=== PATIENT | male | born 1990 | race Caucasian/White ===

== ENCOUNTER 2020-06-17 23:09 | Emergency (ER) | payer MEDICAID ==
[~2020-06-17] VITALS: Ht 188 cm; Wt 101.7 kg
--- NOTE | 2020-06-17 23:33 | NUR ---
pt is calm and states he is feeling down since getting off Fentanyl 20 days ago. Denies SI, no other complaints at this time.
[2020-06-17] MEDS ORDERED: LORazepam 1 MG tablet PO ONE (23:45)
[2020-06-18 00:04] VITALS: BP 119/67
[2020-06-18] MEDS ORDERED: DIVA500T2 PO (12:42)
== END 2020-06-18 00:06 | disposition home or self-care (01) ==
LOC: ER 23:09
DX: F41.9 Anxiety disorder, unspecified (principal); Z79.899 Other long term (current) drug therapy
CPT/HCPCS: 99283

== ENCOUNTER 2020-06-18 09:26 | Emergency (ER) | payer MEDICAID ==
[~2020-06-18] VITALS: Ht 188 cm; Wt 100.9 kg
[2020-06-18 09:36] VITALS: BP 118/82
[2020-06-18] MEDS ORDERED: LORazepam 1 MG tablet PO ONE (11:25)
[2020-06-18] MEDS ORDERED: ondansetron 4mg rapidly disintigrating tab PO ONE (11:50)
[2020-06-18] MEDS ORDERED: divalproex 250mg tablet, delayed-release PO ONE (12:35)
[2020-06-18] MEDS ORDERED: naltrexone 50mg tablet PO SCH (12:35)
[2020-06-18] MEDS ORDERED: DIVA500T2 PO (12:42)
== END 2020-06-18 12:59 | disposition home or self-care (01) ==
LOC: ER 09:26
DX: F41.9 Anxiety disorder, unspecified (principal); R11.0 Nausea; R06.02 Shortness of breath; F32.9 Major depressive disorder, single episode, unspecified; R51.9 Headache, unspecified; Z79.899 Other long term (current) drug therapy
CPT/HCPCS: 99284

== ENCOUNTER 2020-06-22 09:41 | Emergency (ER) | payer MEDICAID ==
[~2020-06-22] VITALS: Ht 188 cm; Wt 104.5 kg
[~2020-06-22 09:41] MED LIST: DIVA500T2 PO
[2020-06-22] MEDS ORDERED: diphenhydrAMINE 50 mg/ml inj IV ONE (09:45)
[2020-06-22] MEDS ORDERED: normal saline 1000ML IV soln IVB ONE (09:45)
[2020-06-22] MEDS ORDERED: proCHLORperazine 10 MG/2 ml inj IV ONE (09:45)
[2020-06-22 10:29] LABS: BASOPHILS % (AUTO) 0.6 % (0-1); EOSINOPHILS # (AUTO) 0.1 X10'3 (0-0.9); EOSINOPHILS % (AUTO) 1.4 % (0-6); HEMATOCRIT 43.4 % (42.0-52.0); HEMOGLOBIN 14.8 g/dl (14.0-17.9); LYMPHOCYTES # (AUTO) 1.9 X10'3 (1.1-4.8); LYMPHOCYTES % (AUTO) 32.2 % (21-51); MEAN CORPUSCULAR HEMOGLOBIN 30.7 PG (27.0-31.0); MEAN CORPUSCULAR VOLUME 90.2 FL (78-98); MEAN PLATELET VOLUME 7.3 FL (7.4-10.4); MONOCYTES # (AUTO) 0.4 X10'3 (0-0.9); MONOCYTES % (AUTO) 7.6 % (2-12); NEUTROPHILS # (AUTO) 3.4 X10'3 (1.8-7.7); NEUTROPHILS % (AUTO) 58.2 % (42-75); PLATELET COUNT 255 X10'3 (140-440); RED BLOOD COUNT 4.81 X10'6 (4.70-6.10); RED CELL DISTRIBUTION WIDTH 14.8 % (11.5-14.5); WHITE BLOOD COUNT 5.9 X10'3 (4.5-11.0)
[2020-06-22 10:45] LABS: ALANINE AMINOTRANSFERASE 18 U/L (12-78); ALBUMIN/GLOBULIN RATIO 1.1 (1.1-1.5); ALKALINE PHOSPHATASE 114 IU/L (46-116); ANION GAP 11 (8-16); ASPARTATE AMINO TRANSFERASE 17 U/L (10-37); BILIRUBIN,TOTAL 0.8 MG/DL (0.1-1.0); BLOOD UREA NITROGEN 7 MG/DL (7-18); BUN/CREATININE RATIO 8.6 (5.4-32.0); CALCIUM 8.9 MG/DL (8.5-10.1); CHLORIDE 107 MMOL/L (99-107); CREATININE 0.81 MG/DL (0.60-1.10); GLUCOSE 110 MG/DL (70-104); LIPASE 74 U/L (73-393); POTASSIUM 3.9 MMOL/L (3.5-5.1); SODIUM 146 MMOL/L (135-145); TOTAL PROTEIN 7.7 G/DL (6.4-8.2); eGFR > 90 ML/MIN
--- NOTE | 2020-06-22 10:48 | NUR ---
PATIENT UNABLE TO VOID
--- NOTE | 2020-06-22 11:54 | NUR ---
PEER PA OK OLGA DISCHARGE WITHOUT OBTAINING URINE
[2020-06-22 12:21] VITALS: BP 159/64
== END 2020-06-22 12:22 | disposition home or self-care (01) ==
LOC: ER 09:41
DX: R11.2 Nausea with vomiting, unspecified (principal); R51.9 Headache, unspecified; Z79.899 Other long term (current) drug therapy
CPT/HCPCS: 36415; 80053; 83690; 85025; 96361; 96374; 96375; 99284; J0780; J1200; J7030